=== PATIENT | male | born 1980 | race African-American/Black ===

== ENCOUNTER 2018-10-04 15:25 | Emergency (ER) | payer MEDICAID ==
--- NOTE | 2018-10-04 16:48 | ER Document Report ---
HPI - HPI Patient complains to provider of: Cough Time Seen by Provider: 10/04/18 16:30 Pain Level: 1 Context: Patient is a 38-year-old male presenting to the emergency department for cough and congestion for the last 3 weeks. Patient is admitting to a subjective fever. Patient denies any diarrhea or vomiting. Patient is any chest pain, shortness of breath, abdominal pain. Patient states on 10/04/2018 he was to [facility] emergency room was given a chest x-ray and a breathing treatment. States he was also sent home on an albuterol inhaler. Patient denies any asthma or bronchospasm history in the past. Patient is unsure of the results of his CXR but states he was not sent home on antibiotics. Patient states he was also given Tessalon Perles and has been taking them as prescribed which he states is not helping his cough. Patient continues with a cough which is why he presents to our emergency room. Past medical history: Hypertension Medications: Lisinopril, meloxicam, Tessalon Perles, albuterol Allergies: None Patient denies cigarette smoking, illicit drug use, EtOH use. - CONSTITUTIONAL Constitutional: REPORTS: Fever, Chills - EENT EENT: DENIES: Sore Throat, Ear Pain, Eye problems - NEURO Neurology: DENIES: Headache, Weakness, Vision blurred, Dizzinesss / Vertigo - CARDIOVASCULAR Cardiovascular: REPORTS: Chest pain - RESPIRATORY Respiratory: REPORTS: Coughing. DENIES: Trouble Breathing - GASTROINTESTINAL Gastrointestinal: DENIES: Abdominal Pain, Black / Bloody Stools - URINARY Urinary: DENIES: Dysuria, Urgency, Frequency - MUSCULOSKELETAL Musculoskeletal: DENIES: Extremity pain Past Medical History - General Information source: Patient - Social History Smoking Status: Never Smoker Chew tobacco use (# tins/day): No Frequency of alcohol use: None Drug Abuse: None Lives with: Family Family History: Reviewed & Not Pertinent Patient has suicidal ideation: No Patient has homicidal ideation: No Renal/ Medical History: Denies: Hx Peritoneal Dialysis Vertical Provider Document - CONSTITUTIONAL Agree With Documented VS: Yes Notes: GENERAL: Alert, interacts well. No acute distress. HEAD: Normocephalic, atraumatic. EYES: Pupils equal, round, and reactive to light. Extraocular movements intact. ENT: Oral mucosa moist, tongue midline. Nares patent, swollen turbinates bilaterally, TM's intact, not erythematous, nonbulging. Pharynx non- erythematous, no palatal petechiae or exudate noted. NECK: Full range of motion. Supple. Trachea midline. No lymphadenopathy appreciated LUNGS: Clear to auscultation bilaterally, no wheezes, rales, or rhonchi. No respiratory distress. HEART: Regular rate and rhythm. No murmur ABDOMEN: Soft, non-tender. Non-distended. Bowel sounds present in all 4 quadrants. EXTREMITIES: Moves all 4 extremities spontaneously. No edema, normal radial and dorsalis pedis pulses bilaterally. No cyanosis. BACK: no cervical, thoracic, lumbar midline tenderness. No saddle anesthesia, normal distal neurovascular exam. NEUROLOGICAL: Alert and oriented x3. Normal speech. cranial nerves II through XII grossly intact. PSYCH: Normal affect, normal mood. SKIN: Warm, dry, normal turgor. No rashes or lesions noted. - INFECTION CONTROL TRAVEL OUTSIDE OF THE [place] IN LAST 30 DAYS: No Course - Re-evaluation Re-evalutation: 10/04/18 16:46 Nursing notes reviewed, vitals reviewed. Discussed with patient at length that his blood pressure is elevated he states he has been taking [id number] cough medication for his cough and congestion. States Tessalon Perles is not helping. Discussed with him need to use Coricidin H BP so that his blood pressure does not continue to rise. Patient's lung sounds are clear and equal in all andersen. No respiratory distress. Discussed doing another chest x-ray with patient since cough has continued. Patient denies chest x-ray at this time states if his lungs sound clear there is no need for one. Patient has no sinus tenderness upon palpation , no signs of sinusitis. Patient is afebrile and not tachycardic at this time. Patient is nontoxic. Discussed use of Nasonex spray, allergy medication and Coricidin H BP over-the- counter medication. Discussed close follow-up with primary care provider. - Vital Signs Vital signs: Temp Pulse Resp BP Pulse Ox 98.1 F 67 16 172/112 H 95 10/04/18 15:43 10/04/18 15:43 10/04/18 15:43 10/04/18 15:43 10/04/18 15:43 Discharge - Discharge Clinical Impression: Upper respiratory infection Qualifiers: URI type: unspecified viral URI Qualified Code(s): J06.9 - Acute upper respiratory infection, unspecified Condition: Stable Disposition: HOME, SELF-CARE Instructions: Upper Respiratory Illness ([facility]), Viral Syndrome ([facility]) Additional Instructions: As we discussed you have been seen and treated in the emergency room for an upper respiratory infection. Unfortunately upper respiratory infections are caused by viruses do not respond to antibiotics. You should take over-the- counter Coricidin H BP for your cold symptoms as it does not raise her blood pressure. You should also take Nasonex as prescribed. You can also add a allergy medication in hopes to drive your sinuses. You can try over-the- counter Yu or Zyrtec which ever one you would like. Please follow-up with your primary care provider in the next 12-24 hours. Please return to the emergency room for any other concerning symptoms. Prescriptions: Mometasone Furoate [Nasonex] 2 spray NS Q12 #1 spray.pump Forms: Elevated Blood Pressure
[2018-10-04 17:05] VITALS: BP 172/116
== END 2018-10-04 16:58 | disposition home or self-care (01) ==
LOC: ER 15:25
DX: J06.9 Acute upper respiratory infection, unspecified (principal); R68.89 Other general symptoms and signs; I10 Essential (primary) hypertension
CPT/HCPCS: 99283